=== PATIENT | male | born 1990 | race Hispanic/Latino ===

== ENCOUNTER 2018-05-19 19:23 | Emergency (ER) | payer OTHER ==
[2018-05-19] MEDS ORDERED: ONDANSETRON HCL 4 MG/2 ML VIAL ONE (20:28)
[2018-05-19] MEDS ORDERED: MORPHINE SULFATE 4 MG/1ML SYG ONE (20:28)
== END 2018-05-19 21:38 | disposition home or self-care (01) ==
LOC: EDH 19:23
DX: S43.005A Unspecified dislocation of left shoulder joint, initial encounter (principal); K21.9 Gastro-esophageal reflux disease without esophagitis; X58.XXXA Exposure to other specified factors, initial encounter; Y93.89 Activity, other specified; Y92.89 Other specified places as the place of occurrence of the external cause; Y99.8 Other external cause status
CPT/HCPCS: 23650; 73020; 73030; 96374; 96375; 99284; J2270; J2405